=== PATIENT | female | born 1985 | race Caucasian/White ===

== ENCOUNTER 2023-03-22 00:18 | Emergency (ER) | payer MEDICAID ==
[~2023-03-22] VITALS: Ht 162.6 cm; Wt 62.1 kg
[2023-03-22 00:27] VITALS: BP_SYST 150; PULSE 86; RESP 16; TEMP 96.4; O2SAT 99
[2023-03-22] MEDS ORDERED: IBUPROFEN 600 MG TABLET PO ONE (01:00)
[2023-03-22 01:30] LABS: COVID19 ANTIGEN SOFIA FIA NEGATIVE (NEGATIVE); INFLUENZA TYPE A NEGATIVE (NEGATIVE)
[2023-03-22 01:32] LABS: INFLUENZA TYPE B POSITIVE (NEGATIVE)
[2023-03-22 01:33] LABS: MONOTEST NEGATIVE (NEGATIVE); STREPTOCOCCUS A SCREEN (RAPID) NEGATIVE (NEGATIVE)
[2023-03-22] MEDS ORDERED: OSEL75CA PO (01:37)
[2023-03-22 02:04] VITALS: BP_SYST 112; PULSE 82; RESP 20; TEMP 97.5; O2SAT 96
== END 2023-03-22 02:04 | disposition home or self-care (01) ==
LOC: SED 00:18
DX: J10.1 Influenza due to other identified influenza virus with other respiratory manifestations (principal); Z88.0 Allergy status to penicillin; Z79.899 Other long term (current) drug therapy; Z20.822 Contact with and (suspected) exposure to COVID-19
CPT/HCPCS: 36415; 86308-TC; 86403; 87081; 99283